=== PATIENT | male | born 1990 | race Caucasian/White ===

== ENCOUNTER 2017-02-24 23:46 | Emergency (ER) | payer OTHER ==
[~2017-02-24] VITALS: Ht 175.3 cm; Wt 86.3 kg
[2017-02-24 23:49] VITALS: TEMP 36.9; Ht 175.3 cm; Wt 86.3 kg
[2017-02-25] MEDS ORDERED: ALUMINUM/MAGNESIUM SUSP 30 ML UDC PO STA (00:01)
[2017-02-25] MEDS ORDERED: ACETAMINOPHEN IV 650 MG in EMPTY BAG 0 ML IV STA (00:01)
--- NOTE | 2017-02-25 00:08 | EMERGENCY ROOM VISIT NOTE ---
History Report prepared by Sigifredo: Maryana Lockwood Under the Supervision of: Amandeep RiveraO. First contact with patient: 23:52 Chief Complaint: CHEST PAIN Stated Complaint: SEVERE CHEST PAIN,SOB,FATIQUE History of Present Illness The patient is a 27 year old male who presents to the Emergency Room with complaints of intermittent sharp chest pain beginning two hours ago. The patient states his pain starts in his left sided chest and goes straight through to his back. The patient was at a concert when his pain began. He states the pain was so severe with its onset he became unable to stand. He reports standing and moving make his pain worse. He states he has never had pain like this before. He notes difficulty breathing and a cough with the onset of his chest pain. He denies any recent changes in medications or recent illnesses. Patient has known hematuria which he follows up with a urologist for. Presently, the patient states taking a deep breath makes his pain worse. 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 He denies any recent problems with his rhythm. The patient denies any family cardiac history Pt denies headache, change in vision, fevers, nausea, vomiting, diarrhea, pain with urination, and melena. Pt ate nachos at the concert [employer]. Source of History: patient Onset: two hours ago Position: chest Quality: sharp Timing: intermittent Modifying Factors (Worsening): movement Associated Symptoms: + cough, + chest pain, + SOB, No headache, No nausea, No vomiting, No diarrhea Review of Systems See HPI for pertinent positives & negatives. A total of 10 systems reviewed and were otherwise negative. Past Medical & Surgical Medical Problems: (1) Kidney problem Family History Patient reports no known family medical history. Social History Smoking Status: Never Smoker Occupation Status: employed Current/Historical Medications Scheduled Acetaminophen (Tylenol), 500 MG PO BID Melatonin (Melatonin Maximum Strengt), 1 TAB PO HS Oxycodone Hcl (Oxycontin), 40 MG PO Q12 Allergies Coded Allergies: No Known Allergies (Unverified , 02/25/17) Physical Exam Vital Signs Date Time Temp Pulse Resp B/P (MAP) Pulse Ox O2 Delivery O2 Flow Rate FiO2 02/25/17 03:17 85 19 116/68 98 02/25/17 02:21 76 19 02/25/17 02:06 128/76 02/25/17 02:00 123/71 02/25/17 01:51 73 17 96 02/25/17 01:30 112/70 02/25/17 01:21 63 14 95 02/25/17 01:16 76 16 96 Room Air 02/25/17 01:00 118/77 02/25/17 00:46 73 14 95 02/25/17 00:31 121/67 02/25/17 00:16 86 16 97 02/25/17 00:05 83 02/25/17 00:00 152/83 02/24/17 23:49 36.9 96 18 149/94 98 Room Air Physical Exam GENERAL: alert, well appearing, well nourished, no distress, non-toxic EYE EXAM: normal conjunctiva, PERRL and EOM's grossly intact OROPHARYNX: no exudate, no erythema, lips, buccal mucosa, and tongue normal and mucous membranes are moist NECK: supple, no nuchal rigidity, no adenopathy, non-tender LUNGS: Clear to auscultation. Normal chest wall mechanics HEART: no murmurs, S1 normal and S2 normal ABDOMEN: abdomen soft, non-tender, normo-active bowel sounds, no masses, no rebound or guarding. BACK: Back is symmetrical on inspection and there is no deformity, no midline tenderness, no CVA tenderness. SKIN: no rashes and no bruising UPPER EXTREMITIES: upper extremities are grossly normal. LOWER EXTREMITIES: No pitting edema. NEURO EXAM: Normal sensorium, cranial nerves II-XII grossly intact, normal speech, no gross weakness of arms, no gross weakness of legs. Medical Decision & Procedures ER Provider Diagnostic Interpretation: Radiology results have been interpreted by me. Chest X-ray: no cardiomegaly, no pleural effusions, no infiltrate, no wide mediastinum, no pneumothorax. Laboratory Results 02/25/17 00:01 Red Blood Count 5.27, Mean Corpuscular Volume 80.3, Mean Corpuscular Hemoglobin 28.7, Mean Corpuscular Hemoglobin Concent 35.7, Mean Platelet Volume 9.1, Neutrophils (%) (Auto) 59.0, Lymphocytes (%) (Auto) 31.9, Monocytes (%) (Auto) 7.6, Eosinophils (%) (Auto) 0.8, Basophils (%) (Auto) 0.5, Neutrophils # (Auto) 5.37, Lymphocytes # (Auto) 2.90, Monocytes # (Auto) 0.69, Eosinophils # (Auto) 0.07, Basophils # (Auto) 0.05 02/25/17 00:01 Test 02/25/17 00:01 02/25/17 02:27 White Blood Count 9.10 K/uL (4.8-10.8) Red Blood Count 5.27 M/uL (4.7-6.1) Hemoglobin 15.1 g/dL (14.0-18.0) Hematocrit 42.3 % (42-52) Mean Corpuscular Volume 80.3 fL (80-100) Mean Corpuscular Hemoglobin 28.7 pg (25-34) Mean Corpuscular Hemoglobin Concent 35.7 g/dl (32-36) Platelet Count 237 K/uL (130-400) Mean Platelet Volume 9.1 fL (7.4-10.4) Neutrophils (%) (Auto) 59.0 % Lymphocytes (%) (Auto) 31.9 % Monocytes (%) (Auto) 7.6 % Eosinophils (%) (Auto) 0.8 % Basophils (%) (Auto) 0.5 % Neutrophils # (Auto) 5.37 K/uL (1.4-6.5) Lymphocytes # (Auto) 2.90 K/uL (1.2-3.4) Monocytes # (Auto) 0.69 K/uL (0.11-0.59) Eosinophils # (Auto) 0.07 K/uL (0-0.5) Basophils # (Auto) 0.05 K/uL (0-0.2) RDW Standard Deviation 36.9 fL (36.4-46.3) RDW Coefficient of Variation 12.7 % (11.5-14.5) Immature Granulocyte % (Auto) 0.2 % Immature Granulocyte # (Auto) 0.02 K/uL (0.00-0.02) Prothrombin Time 11.1 SECONDS (9.0-12.0) Prothromb Time International Ratio 1.1 (0.9-1.1) D-Dimer < 190 ug/L FEU (0-500) Anion Gap 9.0 mmol/L (3-11) Est Creatinine Clear Calc Drug Dose 114.0 ml/min Estimated GFR () 111.4 Estimated GFR (Non- 96.1 BUN/Creatinine Ratio 12.7 (10-20) Calcium Level 9.3 mg/dl (8.5-10.1) Magnesium Level 2.1 mg/dl (1.8-2.4) Total Bilirubin 0.3 mg/dl (0.2-1) Aspartate Amino Transf (AST/SGOT) 31 U/L (15-37) Alanine Aminotransferase (ALT/SGPT) 62 U/L (12-78) Alkaline Phosphatase 84 U/L (45-117) Total Protein 7.4 gm/dl (6.4-8.2) Albumin 4.1 gm/dl (3.4-5.0) Globulin 3.3 gm/dl (2.5-4.0) Albumin/Globulin Ratio 1.2 (0.9-2) Troponin I < 0.015 ng/ml (0-0.045) Laboratory results per my review. Medications Administered Medications (Trade) Dose Ordered Sig/Remi Route Start Time Stop Time Status Last Admin Dose Admin Acetaminophen 650 mg/Empty Bag 65 ml @ 260 mls/hr NOW STAT IV 02/25/17 00:01 02/25/17 00:15 DC 02/25/17 00:13 260 MLS/HR Al Hydroxide/Mg Hydroxide (Maalox Susp) 15 ml NOW STAT PO 02/25/17 00:01 02/25/17 00:04 DC 02/25/17 00:13 15 ML Famotidine (Pepcid 20mg Iv Push) 20 mg ONE STAT IV 02/25/17 01:05 02/25/17 01:06 DC 02/25/17 01:12 20 MG Ketorolac Tromethamine (Toradol Inj) 30 mg NOW STAT IV 02/25/17 01:05 02/25/17 01:06 DC 02/25/17 01:12 30 MG ECG Indication: chest pain Rate (beats per minute): 87 Findings: no acute ischemic change, other (normal axis, normal intervals) Comparison ECG Date: EKG per my interpretation ED Course 6083: The patient was evaluated in room A10. A complete history and physical exam was performed. 0001: Ordered Maalox Susp 15 ml PO, Acetaminophen 650 mg/Empty Bag 65 ml @ 260 mls/ hr IV. 0103: I updated the patient on his test results. He has had no change in his symptoms. 0105: Ordered Toradol Inj 30 mg IV, Famotidine 20 mg IV. 0228: The patient is feeling better. 0317: Upon reevaluation, the patient is feeling better. I discussed the findings and the treatment plan with the patient. He verbalizes agreement and understanding. The patient was discharged home. Medical Decision Differential diagnosis: Etiologies such as cardiac ischemia, aortic dissection, pulmonary embolism, pneumonia, pneumothorax, musculoskeletal, infections, pericarditis, myocarditis , esophageal rupture, gastrointestinal, as well as others were entertained. HEART score 0 low risk well, perc negative, dimer negative Patient well-appearing here despite complaints. Patient improved following medication here. Discussed with patient possible differential diagnosis. I do not suspect dissection, perforation, occult GI bleed, PE, ACS, tamponade, no evidence of effusion or infiltrate on chest x-ray. Vital signs stable throughout, no ectopy noted on telemetry. Discussed with patient follow-up with family doctor as a precaution, symptoms to watch and return for, patient was here visiting just for the concert and verbalized understanding of plan and agreeable with doing so when he returns home. Medication Reconcilliation Current Medication List: was personally reviewed by me Blood Pressure Screening Patient's blood pressure: Normal blood pressure Impression Primary Impression: Chest pain Scribe Attestation The scribe's documentation has been prepared under my direction and personally reviewed by me in its entirety. I confirm that the note above accurately reflects all work, treatment, procedures, and medical decision making performed by me. Departure Information Dispostion Home / Self-Care Referrals No Doctor, Assigned (PCP) Forms HOME CARE DOCUMENTATION FORM, IMPORTANT VISIT INFORMATION Patient Instructions My [facility] Additional Instructions Please continue regular medications as prescribed. You may eat and drink normally. Please follow up with your family doctor regarding the episode tonight. Please continue to monitor for any recurrent symptoms. If you develop any recurrent or worsening chest pain, trouble breathing, dizziness, vomiting, fevers, noticed blood in your sputum, noticed black or bloody stools, or you've any other new concerns, please return to the ER immediately. Problem Qualifiers Primary Impression: Chest pain Chest pain type: unspecified Qualified Codes: R07.9 - Chest pain, unspecified
[2017-02-25 00:11] LABS: BASO % 0.5 %; BASO ABS # 0.05 K/uL (0-0.2); EOS % 0.8 %; EOS ABS # 0.07 K/uL (0-0.5); HEMATOCRIT 42.3 % (42-52); HEMOGLOBIN 15.1 g/dL (14.0-18.0); IG# 0.02 K/uL (0.00-0.02); LYMPH % 31.9 %; MEAN CELL VOLUME 80.3 fL (80-100); MEAN CORPUSCULAR HEMOGLOBIN 28.7 pg (25-34); MEAN CORPUSCULAR HGB CONC 35.7 g/dl (32-36); MEAN PLATELET VOLUME 9.1 fL (7.4-10.4); MONO % 7.6 %; MONO ABS # 0.69 K/uL (0.11-0.59); NEUT ABS # 5.37 K/uL (1.4-6.5); PLATELET COUNT 237 K/uL (130-400); RED CELL DISTRIBUTION WIDTH CV 12.7 % (11.5-14.5); RED CELL DISTRIBUTION WIDTH SD 36.9 fL (36.4-46.3)
[2017-02-25 00:30] LABS: ALBUMIN 4.1 gm/dl (3.4-5.0); ALT/SGPT 62 U/L (12-78); BLOOD UREA NITROGEN 13 mg/dl (7-18); CALCIUM 9.3 mg/dl (8.5-10.1); CARBON DIOXIDE 26 mmol/L (21-32); CREATININE 1.05 mg/dl (0.60-1.40); GLUCOSE 99 mg/dl (70-99); POTASSIUM 3.8 mmol/L (3.5-5.1); SODIUM 139 mmol/L (136-145)
[2017-02-25 00:34] LABS: INR 1.1 (0.9-1.1)
[2017-02-25 00:35] LABS: ALKALINE PHOSPHATASE 84 U/L (45-117); AST/SGOT 31 U/L (15-37); TOTAL PROTEIN 7.4 gm/dl (6.4-8.2)
[2017-02-25] MEDS ORDERED: ACET-1256 PO (00:52)
[2017-02-25] MEDS ORDERED: OXYC40TA34 PO (00:52)
[2017-02-25] MEDS ORDERED: MELATAB2 PO (00:52)
[2017-02-25] MEDS ORDERED: FAMOTIDINE 20MG/5ML IV PUSH IV STA (01:05)
[2017-02-25] MEDS ORDERED: KETOROLAC TROMETHAMINE 30 MG/ML VIAL IV STA (01:05)
[2017-02-25 03:17] VITALS: BP 116/68; PULSE 85; O2SAT 98
--- NOTE | 2017-02-25 06:39 | DIAGNOSTIC IMAGING REPORT ---
CHEST ONE VIEW PORTABLE HISTORY: 27 years-old Male chest pain acute atypical chest pain COMPARISON: None available TECHNIQUE: Portable upright AP view of the chest FINDINGS: Cardiomediastinal and hilar silhouettes are within normal limits. There is no pneumothorax, pleural effusion, focal airspace consolidation or overt pulmonary edema. Bones of the chest appear grossly intact. IMPRESSION: No acute process. The above report was generated using voice recognition software. It may contain grammatical, syntax or spelling errors. Electronically signed by: Grady Nelson M.D. 02/25/2017 6:37 AM Dictated Date/Time: 02/25/2017 6:36 AM
== END 2017-02-25 03:18 | disposition home or self-care (01) ==
LOC: C.EDB 23:47 → C.EDA 02-25 03:18
DX: R07.9 Chest pain, unspecified (principal); N28.9 Disorder of kidney and ureter, unspecified